=== PATIENT | male | born 1970 | race Native Hawaiian/Other Pacific Islander ===

== ENCOUNTER 2019-12-05 13:56 | Inpatient (IN) | payer MEDICAID, SELFPAY ==
[~2019-12-05] VITALS: Ht 172.7 cm; Wt 95.3 kg
[2019-12-05 14:00] VITALS: BP 124/70
--- NOTE | 2019-12-05 14:35 | NUR ---
C/O SOB/COUGH & FEVER X3 WEEKS. PT IS COVID +. O2 SAT RA 90%. LUNG SOUNDS DIMINISHED IN BILAT BASES. PT TACHYPNEIC AT 31 RESPIRATIONS PER MINUTE. BREATHING IS UNLABORED AND ACCESORY MUSCLE USE IS NOT NOTED. PT DENIES N/V/D. PT IS AFEBRILE AT THIS TIME. PT PLACED ON 2LMP NC. PT PLACED ON BEDSIDE GEMOLOGIST AT THIS TIME. BED IN LOW POSITION, SIDE RAIL UP X1.
--- NOTE | 2019-12-05 14:45 | NUR ---
Dr. Mcallister is evaluating the patient at bedside.
[2019-12-05 15:29] LABS: HEMATOCRIT 40.9 % (36-52); RED BLOOD CELL COUNT(AUTO) 4.46 MIL/uL (4.20-6.10); WHITE BLOOD COUNT (AUTO) 6.3 K/uL (4.8-10.8)
[2019-12-05 15:30] LABS: BASOPHILS % (AUTO) 0.3 % (0.0-2.0); EOSINOPHILS % (AUTO) 0.3 % (0.0-4.0); LYMPHOCYTES % (AUTO) 9.6 % (20.5-51.1); MEAN CORPUSCULAR HEMOGLOBIN 31 pg (27-31); MEAN CORPUSCULAR HGB CONC 34 g/dL (33-37); MEAN CORPUSCULAR VOLUME 91.6 fL (80-94); NEUTROPHILS % (AUTO) 82.8 % (42.2-75.2); PLATELET COUNT (AUTO) 172 K/uL (140-450); RED CELL DISTRIBUTION WIDTH 12.8 % (11.6-13.7)
[2019-12-05 15:31] LABS: LYMPHOCYTES # (AUTO) 0.6 K/uL (2.0-11.5); MONOCYTES # (AUTO) 0.4 K/uL (0.8-1.0); NEUTROPHILS # (AUTO) 5.2 K/uL (1.8-7.7)
--- NOTE | 2019-12-05 15:36 | NUR ---
PT UNABLE TO PROVIDE URINE AT THIS TIME
[2019-12-05 15:47] LABS: PROTHROMBIN TIME 10.1 secs (10.8-13.4)
[2019-12-05 15:57] LABS: ALBUMIN 3.1 g/dL (3.4-5.0); ANION GAP 15.7 (8-16); CARBON DIOXIDE 25.3 mmol/L (21-32); TOTAL BILIRUBIN 0.6 mg/dL (0.0-1.0)
--- NOTE | 2019-12-05 16:00 | NUR ---
PT PROVIDED URINE SAMPLE. WALKED TO LAB
[2019-12-05] MEDS ORDERED: AZITHROMYCIN 500 MG in DEXTROSE 5% 250 ML IV ONE (16:35)
[2019-12-05] MEDS ORDERED: AZITHROMYCIN 500 MG INJ VIAL IV ONE (16:41)
[2019-12-05 16:44] LABS: APPEARANCE,URINE CLEAR (CLEAR); BILIRUBIN,URINE NEGATIVE (NEGATIVE); BLOOD, URINE NEGATIVE (NEGATIVE); LEUKOCYTE ESTERASE ,URINE NEGATIVE (NEGATIVE); NITRITE, URINE NEGATIVE (NEGATIVE); UGLUCOSE NEGATIVE (NEGATIVE)
[2019-12-05] MEDS ORDERED: POTASSIUM CHLORIDE 10 MEQ TABER PO PRN (16:55)
[2019-12-05] MEDS ORDERED: HYDROcodone/APAP 7.5/325 MG 1 TAB PO PRN (16:55)
[2019-12-05] MEDS ORDERED: DOCUSATE SODIUM 100 MG GELCAP PO PRN (16:55)
[2019-12-05] MEDS ORDERED: ONDANSETRON 4 MG/2 ML VIAL IM/IVP PRN (16:55)
[2019-12-05] MEDS ORDERED: ACETAMINOPHEN 325 MG TAB PO PRN (16:55)
[2019-12-05 16:59] LABS: COLOR,URINE AMBER (YELLOW)
--- NOTE | 2019-12-05 17:03 | NUR ---
PT IS RESTING IN BED AT THIS TIME, DENIES ANY PAIN OR DISCOMFORT. VSS. BED IN LOWEST POSITION. ALL NEEDS MET AT THIS TIME
[2019-12-05] MEDS: NACL 0.9% 1,000 ML IV SCH (17:22)
[2019-12-05 17:46] LABS: CHOL/HDL RATIO 5.7 (1-4.5); FREE T4 (FREE THYROXINE) 1.1 ng/dL (0.76-1.46); PHOSPHORUS 3.4 mg/dL (2.5-4.9); THYROID STIMULATING HORMONE 1.95 uIU/mL (0.34-3.74)
[2019-12-05 18:26] LABS: BARBITURATE, URINE NEGATIVE ng/ml (NEG <=200); BENZODIAZEPINE, URINE NEGATIVE ng/mL (NEG <=200); CANNABINOID, URINE NEGATIVE ng/mL (NEG <=50); COCAINE, URINE NEGATIVE ng/mL (NEG <=300); OPIATE, URINE NEGATIVE ng/mL (NEG <=2000); PHENCYCLIDINE SCREEN,URINE NEGATIVE ng/mL (NEG <=25)
--- NOTE | 2019-12-05 19:27 | NUR ---
Report received from CELINE Vargas. Transfer of care at this time.
--- NOTE | 2019-12-05 19:27 | NUR ---
PT IS RESTING IN BED QUIETLY. NO DISTRESS NOTED AT THIS TIME. CURRENTLY O2: 96% 3LPM NC. BP: 124/72, P: 71. R/R EQUAL, AND UNLABORED. NO ACCESSORY MUSCLE USE NOTED. CURRENTLY CONNECTED TO DRUM TENDER. SIDE RAIL X2, BED IN LOW POSITION, WILL CONTINUE TO MONITOR.
[2019-12-05] MEDS ORDERED: ALBUTEROL HFA MDI 90 MCG/ACTUATION 8 GM INH PRN (21:25)
--- NOTE | 2019-12-05 21:30 | NUR ---
PT SITTING UP IN BED EATING SANDWHICH. VSS, R/R EQUAL, AND UNLABORED. SIDE RAIL X1, BED IN LOW POSITION, WILL CONTINUE TO MONITOR.
[2019-12-05] MEDS ORDERED: cefTRIAXone 1,000 MG VIAL ONE (22:05)
--- NOTE | 2019-12-05 22:23 | NUR ---
ROCEPHIN 1,000MG IN D5% 50ML RUNNING AT 100ML/HR
--- NOTE | 2019-12-05 23:04 | NUR ---
Sydnie bishop in [facility] - 12/06/19 at 0004 by [facility] PT'S DIAPER, AND LINEPj BUTCHER.
--- NOTE | 2019-12-05 23:05 | NUR ---
PT PLACED BACK ON NS @ 100ML/HR. PT RESTING QUIETLY IN BED, VSS, O2: 93%, R/R EQUAL, AND UNLABORED. SIDE RAIL X1, BED IN LOW POSITION, WILL CONTINUE TO MONITOR.
--- NOTE | 2019-12-06 00:13 | NUR ---
PT RESTING QUIETLY IN BED, VSS, O2: 92% R/R EQUAL, AND UNLABORED, SIDE RAIL X1, BED IN LOW POSITION WILL CONTINUE TO MONITOR.
--- NOTE | 2019-12-06 02:53 | NUR ---
O2% BEGAN TO DECLINE TO 81-83% WHILE ON NC @5L/MIN. PT WAS THEN PLACED ON NONREBREATHER MASK @10L/MIN AND O2 SAT INCREASED TO 88-89%. DR. AQUINO CALLED.
--- NOTE | 2019-12-06 03:12 | NUR ---
DR. AQUINO REQUESTED FOR RT TO COME AND MAINTAIN PT'S O2 SATURATION, AND IF THAT COULDNT BE ACHIEVED TO CALL BALLISTICS EXPERT. Addendum: 12/06/19 at 0315 by [employer] ORDER IS TO MAINTAIN O2 ABOVE 90%
--- NOTE | 2019-12-06 03:14 | NUR ---
RT AT BEDSIDE COMPLETING ABG.
--- NOTE | 2019-12-06 03:47 | NUR ---
PT APPEARS TO BE SLEEPING, R/R EQUAL, AND UNLABORED, VSS, O2SAT: 93%. SIDE RAIL X1, BED IN LOW POSITION, WILL CONTINUE TO MONITOR.
[2019-12-06] MEDS: NACL 0.9% 1,000 ML IV SCH ×3 (03:50→21:37)
--- NOTE | 2019-12-06 04:56 | NUR ---
PT APPEARS TO BE SLEEPING, R/R EQUAL, AND UNLABORED, VSS, O2SAT: 92%. SIDE RAIL X1, BED IN LOW POSITION, WILL CONTINUE TO MONITOR.
--- NOTE | 2019-12-06 06:13 | NUR ---
PT RESTING IN BED QUIETLY. R/R EQUAL, AND UNLABORED, VSS, O2SAT: 93%. SIDE RAIL X1, BED IN LOW POSITION, WILL CONTINUE TO MONITOR.
--- NOTE | 2019-12-06 07:23 | NUR ---
PT ADMITTED TO THE CARE OF . ADMITTED TO MED SURG ROOM 128. REPORT GIVEN TO RUPERT BERGER. VSS AT ADMISSION TO NEXT UNIT.
--- NOTE | 2019-12-06 07:26 | NUR ---
RECEIVED REPORT FROM ER NURSE JANETTE FOR CONTINUITY OF CARE. PT IS AAOX4, COOPERATIVE AND ABLE TO MAKE NEEDS KNOWN. PT IS ROMANIAN SPEAKING. PT ON 15L O2 VIA NON-REBREATHER. PT WAS HAVING TROUBLE BREATHING ON PREVIOUS O2 SETTINGS PER ER NURSE. PT STABLE AT THIS TIME WITH NO S/S OF RESP DISTRESS. PT SKIN INTACT. PT ABLE TO AMBULATE AND PERFORM ADL'S INDEPENDENTLY. DISCUSSED POC WITH PT NAD PT VERBALIZED UNDERSTANDING. ALL NEEDS CURRENTLY MET. BED IN LOW POSITION, CALL LIGHT WITHIN REACH. WILL ROUND FREQUENTLY ON PT THROUGHOUT THE SHIFT.
[2019-12-06 07:48] LABS: BASOPHILS % (AUTO) 0.5 % (0.0-2.0); EOSINOPHILS # (AUTO) 0.1 K/uL (0-0.4); EOSINOPHILS % (AUTO) 0.9 % (0.0-4.0); HEMATOCRIT 37.8 % (36-52); HEMOGLOBIN 12.9 g/dL (12.0-18.0); LYMPHOCYTES # (AUTO) 1.1 K/uL (2.0-11.5); LYMPHOCYTES % (AUTO) 18.5 % (20.5-51.1); MEAN CORPUSCULAR HEMOGLOBIN 31 pg (27-31); MEAN CORPUSCULAR HGB CONC 34 g/dL (33-37); MEAN CORPUSCULAR VOLUME 92.4 fL (80-94); MONOCYTES # (AUTO) 0.5 K/uL (0.8-1.0); MONOCYTES % (AUTO) 8.9 % (1.7-9.3); NEUTROPHILS # (AUTO) 4.2 K/uL (1.8-7.7); NEUTROPHILS % (AUTO) 71.2 % (42.2-75.2); PLATELET COUNT (AUTO) 173 K/uL (140-450); RED CELL DISTRIBUTION WIDTH 12.4 % (11.6-13.7); WHITE BLOOD COUNT (AUTO) 5.9 K/uL (4.8-10.8)
--- NOTE | 2019-12-06 08:38 | NUR ---
PATIENT HAS BEEN SCREENED AND CATEGORIZED MODERATE NUTRITION RISK. PATIENT WILL BE SEEN WITHIN 3-5 DAYS OF ADMISSION. 12/08/19 12/10/[address]
[2019-12-06 08:39] LABS: ANION GAP 15.1 (8-16); CARBON DIOXIDE 24.2 mmol/L (21-32); CREATININE 0.9 mg/dL (0.6-1.3); POTASSIUM 4.3 mmol/L (3.5-5.1)
--- NOTE | 2019-12-06 09:11 | NUR ---
ADMINISTERED MORNING MEDS TO PT. PT TOLERATED WELL. WILL CONTINUE TO ROUND FREQUENTLY ON PT.
[2019-12-06] MEDS: DEXAMETHASONE 4 MG TAB PO SCH (09:42)
[2019-12-06] MEDS: ASCORBIC ACID 500 MG TAB PO SCH (09:43)
[2019-12-06] MEDS: ZINC SULF 220 MG CAP PO SCH (09:43)
[2019-12-06] MEDS: AZITHROMYCIN 250 MG TAB PO SCH (09:43)
--- NOTE | 2019-12-06 10:03 | NUR ---
ROBOTICS TESTING TECHNICIAN NOTE: Patient's Orientation Unable To Assess Information Provided By BUCK RODRIGUEZ - Comments SW WAS UNABLE TO MEET PATIENT AT BEDSIDE DUE TO MEDICAL CONDITION. SW CONTACTED PATIENT'S BUCK RODRIGUEZ [phone] AND USED YARD ASSISTANT HÉCTOR [id number]. Anesthesiologist Physician, Realtionship and Phone Number BUCK VERA [phone] Healthcare Power of Forensic Investigator No Does Patient Have a POLST No Identifying Problems No Social Work Triggers Is A Social Work Consult Needed No Mandate Report Filed No Explanation Of Identifying Problems PATIENT IS A 49-YEAR-OLD MALE ADMITTED FOR PNEUMONIA AND COVID R/O. PATIENT HAS NO REPORTED PMHX. Admitted From Home Pre-Admission Level Of Functioning Status Independent/Ambulatory Prior Resources/Services Used In Last 12 Months No Prior Resources Used Prior DME No Prior DME Used Living Situation Apartment Lives With Family Patient Had Caregiver No Home Support No Caregiver Issues Financial Issues No Known Financial Issue Referral To The Financial Counselor Needed No Factors/Needs No D/C Needs Identified Pt/Rep Participated In Discharge Plan Yes Patient/Family Agress With Discharge Plan Yes Discharge Plan Comments TENTATIVE DISCHARGE PLAN IS FOR PATIENT TO RETURN HOME. DC Plan Status Initiated
--- NOTE | 2019-12-06 10:52 | NUR ---
PT WAS CHANGED FROM NRB AT 100% TO 9L OXYMIZER AND CELINE EMERY NOTIFIED OF CHANGE
--- NOTE | 2019-12-06 11:19 | NUR ---
PT RESTING IN BED. ALL NEEDS MET.
--- NOTE | 2019-12-06 13:22 | NUR ---
PT ASLEEP. ALL NEEDS MET.
--- NOTE | 2019-12-06 14:52 | NUR ---
MRSA NARES AND COVID SWABS TAKEN TO LAB.
--- NOTE | 2019-12-06 15:30 | NUR ---
DISCHARGE PLANNING: THIS IS A 49 Y/O MALE PATIENT FROM HOME, WHO CAME IN DUE TO SOB. NO PERTINENT PAST MEDICAL HISTORY. INITIAL DIAGNOSIS OF PNEUMONIA AND COVID 19. COVID TEST PENDING. CURRENT LABS INCLUDE WBC 5.9, H/H 12.9/37.8, NA/K 137/4.3, BUN/CREA 9/0.9. BLOOD CS SHOWED NO GROWTH AFTER 24 HOURS. ON AZITHROMYCIN, DECADRON AND ROCEPHIN. ON NON REBREATHER MASK AT 15 LPM, O2 SAT 96%. PULMO CONSULT IN PLACE. TENTATIVE DC PLAN BACK TO HOME ONCE STABLE. Addendum: 12/08/19 at 1345 by Diana Dillon CM FAXED PATIENTS CLINICALS TO [facility], SPOKE TO SHERYL FROM [facility] [phone]. THE HOME 02 WILL BE DISPATCHED TODAY. Addendum: 12/08/19 at 1536 by Diana Dillon CM FOLLOWED UP WITH [facility] ETA FOR OXYGEN WILL BE WITHIN TWO HOURS (5:30) Addendum: 12/09/19 at 1606 by Diana Dillon CELINE SORIANO CALLED ME REGARDING OXYGEN FOR PATIENT. IT WAS DELIVERED YESTERDAY BUT SHE STATED IT WAS EMPTY. I REACHED OUT TO SUMAYA AT [facility] HE IS SENDING A CLINICAL SPECIALIST OUT TO DISPATCH A NEW TANK. SPOKE TO CELINE SORIANO SHE WAS AWARE. ETA WILL BE WITHIN TWO HOURS FROM NOW
--- NOTE | 2019-12-06 15:49 | NUR ---
PT RESTING IN BED. ALL NEEDS MET. WILL CONTINUE TO ROUND FREQUENTLY ON PT.
[2019-12-06 16:00] VITALS: BP 110/76
--- NOTE | 2019-12-06 17:30 | NUR ---
PT RESTING IN BED. ALL NEEDS MET.
--- NOTE | 2019-12-06 18:53 | NUR ---
WILL ENDORSE PT TO MANUAL PLATE FILLER FOR CONTINUITY OF CARE. PT IN STABLE CONDITION AT THIS TIME.
--- NOTE | 2019-12-06 19:19 | NUR ---
RECEIVED BEDSIDE REPORT FROM DAY RN RUPERT, PT IS SITING AT EDGE OF BED EATING DINNER. NO S/S OF DISTRESS. PT OFF OXIMIZER SAT LOW IN LOW 80S ON ROOM AIR. EDUCATED PT TO PUT OXIMIZER ON. ON OXIMZER 9L SAT WELL 97%. PT IS AAOX4. NO S/S OF DISTRESS. IV ON RAC 28G NS INFUSING AT 100ML/H. SKIN IS INTACT. PT R/O COVID. DROPLET ISOLATION PER PROTOCOL SIGN AT DOOR. PT IS AMBULATORY AND ABLE TO MAKE NEEDS KNOWN. POC DISCUSSED WITH PT. CALL LIGHT IS WITHIN REACH. WILL CONTINUE TO MONITOR.
[2019-12-06 20:00] VITALS: BP 111/71
--- NOTE | 2019-12-06 21:15 | NUR ---
VSS. GERDA MEDICATION GIVEN PER ORDERS. MED EDUCATION GIVEN. PT VERBALIZED UNDERSTANDING. ALL QUESTIONS AND CONCERNS ADDRESSED. PT VERBALIZED HE PLANS TO DONATE PLASMA WHEN HE RECOVERS. PT VERBALIZED POC. ALL NEEDS MET. CALL LIGHT IS WITHIN REACH.
--- NOTE | 2019-12-06 22:08 | NUR ---
PT IS RESTING COMFORTABLY IN BED WATCHING TV. ALL NEEDS MET. CALL LIGHT IS WITHIN REACH. WILL CONTINUE TO MONITOR.
[2019-12-07] VITALS: BP 117/64
--- NOTE | 2019-12-07 | NUR ---
VITAL SIGNS ARE WITHIN NORMAL LIMITS. ALL SAFETY MEASURES ARE IN PLACE. CALL LIGHT IS WITHIN REACH.
--- NOTE | 2019-12-07 01:51 | NUR ---
PT IS SLEEPING COMFORTABLY IN BED WITH EYES CLOSED. CHEST RISE AND FALL NOTED. CALL LIGHT IS WITHIN REACH. WILL CONTINUE TO MONITOR.
--- NOTE | 2019-12-07 04:00 | NUR ---
MADE ROUNDS. PT IS SLEEPING COMFORTABLY IN BED. NO S/S OF DISTRESS. CALL LIGHT IS WITHIN REACH.
--- NOTE | 2019-12-07 05:59 | NUR ---
MADE ROUNDS. PT IS SLEEPING COMFORTABLY IN BED. CALL LIGHT IS WITHIN REACH.
[2019-12-07 06:18] LABS: BASOPHILS % (AUTO) 0.4 % (0.0-2.0); HEMATOCRIT 37.2 % (36-52); HEMOGLOBIN 12.3 g/dL (12.0-18.0); LYMPHOCYTES # (AUTO) 0.7 K/uL (2.0-11.5); LYMPHOCYTES % (AUTO) 15.5 % (20.5-51.1); MEAN CORPUSCULAR HEMOGLOBIN 31 pg (27-31); MEAN CORPUSCULAR HGB CONC 33 g/dL (33-37); MEAN CORPUSCULAR VOLUME 92.8 fL (80-94); MONOCYTES # (AUTO) 0.4 K/uL (0.8-1.0); NEUTROPHILS # (AUTO) 3.2 K/uL (1.8-7.7); NEUTROPHILS % (AUTO) 74.1 % (42.2-75.2); RED BLOOD CELL COUNT(AUTO) 4.01 MIL/uL (4.20-6.10); RED CELL DISTRIBUTION WIDTH 12.5 % (11.6-13.7); WHITE BLOOD COUNT (AUTO) 4.3 K/uL (4.8-10.8)
[2019-12-07 06:23] LABS: PLATELET COUNT (AUTO) 207 K/uL (140-450)
[2019-12-07 06:46] LABS: ANION GAP 14.1 (8-16); CARBON DIOXIDE 25.2 mmol/L (21-32); CREATININE 0.8 mg/dL (0.6-1.3); POTASSIUM 4.3 mmol/L (3.5-5.1)
--- NOTE | 2019-12-07 07:19 | NUR ---
GAVE BEDSIDE REPORT TO DAY RN. PT ENDORSED IN STABLE CONDITION.
--- NOTE | 2019-12-07 07:26 | NUR ---
RECEIVED REPORT FROM NIGHTSHIFT NURSE. PT RESTING IN BED. ABLE TO MAKE NEEDS KNOWN. RESPIRATIONS EVEN AND UNLABORED WITH NO SOB OR RESPIRATORY DISTRESS. SKIN WARM AND DRY TO TOUCH. IV SITE IN RAC 18G IS CLEAN, DRY, AND INTACT. SAFETY MEASURES IN PLACE. WILL CONTINUE TO MONITOR
[2019-12-07 08:00] VITALS: BP 132/86
--- NOTE | 2019-12-07 09:30 | NUR ---
ADMINISTERED SCHED MED PRESCRIBED PER MD ORDER. PT TOLERATED WELL. SAFETY MEASURES IN PLACE. WILL CONTINUE TO MONITOR
[2019-12-07] MEDS: NACL 0.9% 1,000 ML IV SCH ×2 (09:32→18:30)
[2019-12-07] MEDS: ZINC SULF 220 MG CAP PO SCH (09:35)
[2019-12-07] MEDS: AZITHROMYCIN 250 MG TAB PO SCH (09:35)
[2019-12-07] MEDS: DEXAMETHASONE 4 MG TAB PO SCH (09:35)
[2019-12-07] MEDS: ASCORBIC ACID 500 MG TAB PO SCH (09:35)
--- NOTE | 2019-12-07 11:25 | NUR ---
HOURLY ROUNDING. PT RESTING IN BED WATCHING TV. ABLE TO MAKE NEEDS KNOWN. RESPIRATIONS EVEN AND UNLABORED WITH NO SOB OR RESPIRATORY DISTRESS. SKIN WARM AND DRY TO TOUCH. SAFETY MEASURES IN PLACE. WILL CONTINUE TO MONITOR
[2019-12-07 12:17] LABS: T4 (THYROXINE) 6.6 ug/dL (4.5-12.0)
--- NOTE | 2019-12-07 13:04 | NUR ---
PT WALKING AROUND ROOM. ABLE TO MAKE NEEDS KNOWN. RESPIRATIONS EVEN AND UNLABORED WITH NO SOB OR RESPIRATORY DISTRESS. SKIN WARM AND DRY TO TOUCH. SAFETY MEASURES IN PLACE. WILL CONTINUE TO MONITOR
[2019-12-07 16:00] VITALS: BP 111/76
--- NOTE | 2019-12-07 16:15 | NUR ---
HOURLY ROUNDING. PT RESTING IN BED. ABLE TO MAKE NEEDS KNOWN. RESPIRATIONS EVEN AND UNLABORED WITH NO SOB OR RESPIRATORY DISTRESS. SKIN WARM AND DRY TO TOUCH. SAFETY MEASURES IN PLACE. WILL CONTINUE TO MONITOR
--- NOTE | 2019-12-07 18:38 | NUR ---
ADMINISTERED SCHED IVF PRESCRIBED PER MD ORDER. PT TOLERATED WELL. SAFETY MEASURES IN PLACE. WILL CONTINUE TO MONITOR
--- NOTE | 2019-12-07 19:09 | NUR ---
ENDORSED AT BEDSIDE TO NIGHTSHIFT NURSE FOR CONTINUITY OF CARE. PATIENT IS STABLE
--- NOTE | 2019-12-07 19:20 | NUR ---
RECEIVED REPORT FROM MORNING SHIFT NURSE. PT IS CURRENTLY IN THE RESTROOM IN NO DISTRESS. SAFETY MEASURES IN PLACE. WILL CONTINUE TO MONITOR WILL CONTINUE WITH POC
--- NOTE | 2019-12-07 21:09 | NUR ---
RECEIVED REPORT FROM AM SHIFT. PT SEEN AND ASSESSED. FOUND PT ON 9L OXYMIZER. PT REQUESTED FOR A CHANGE IN MODALITY. PLACE PT ON 6L NC WITH SPO2 OF 95%. CLEAR/DIMINISHED BREATH SOUNDS ON AUSCULTATION. PT IN NO APPARENT RESPIRATORY DISTRESS AT THIS TIME. PRN TX NOT INDICATED AT THIS MOMENT. INFORMED PT TO CALL FOR PRN TX IF EXPERIENCING SOB. WILL CONTINUE TO MONITOR PT.
--- NOTE | 2019-12-07 23:00 | NUR ---
PT RESTING IN BED IN NO DISTRESS, CALL LIGHT WITHIN REACH SAFETY MEASURES IN PLACE.
[2019-12-08] VITALS: BP 112/58
--- NOTE | 2019-12-08 00:15 | NUR ---
PT RESTING IN BED DENIES ANY PAIN OR DISCOMFORT IN NO RESPIRATORY DISTRESS. V/S: 97.3, 66, 19, 112/58, 93 % 6L NC. WILL CONTINUE TO MONITOR. CALL LIGHT WITHIN REACH ALL NEEDS ARE MET AT THIS TIME.
--- NOTE | 2019-12-08 02:05 | NUR ---
IN BED WITH EYES CLOSED IN NO DISTRESS. SAFETY MEASURES IN PLACE
--- NOTE | 2019-12-08 04:00 | NUR ---
PT ASLEEP LAYING SUPINE IN NO RESPIRATORY DISTRESS. SPO2 OF 96% ON 6 L NC. REMAINS ON IVF NS AT 100ML TO R AC. IV SITE INTACT AND PATENT. DENIES ANY PAIN OR DISCOMFORT AT THIS TIME. WILL CONTINUE TO MONITOR.
[2019-12-08] MEDS: NACL 0.9% 1,000 ML IV SCH ×2 (05:20→15:38)
--- NOTE | 2019-12-08 06:02 | NUR ---
DURING ROUNDS PT OBSERVED TO BE RESTING WITH EYES CLOSED. RESPIRATION EVEN AND UNLABORED. IN NO DISTRESS. WILL CONTINUE TO MONITOR
[2019-12-08 06:19] LABS: BASOPHILS % (AUTO) 0.4 % (0.0-2.0); HEMATOCRIT 35.8 % (36-52); HEMOGLOBIN 12.2 g/dL (12.0-18.0); LYMPHOCYTES # (AUTO) 0.9 K/uL (2.0-11.5); LYMPHOCYTES % (AUTO) 12.2 % (20.5-51.1); MEAN CORPUSCULAR HEMOGLOBIN 31 pg (27-31); MEAN CORPUSCULAR HGB CONC 34 g/dL (33-37); MEAN CORPUSCULAR VOLUME 91.8 fL (80-94); MONOCYTES # (AUTO) 0.8 K/uL (0.8-1.0); MONOCYTES % (AUTO) 11.5 % (1.7-9.3); NEUTROPHILS # (AUTO) 5.5 K/uL (1.8-7.7); NEUTROPHILS % (AUTO) 75.9 % (42.2-75.2); PLATELET COUNT (AUTO) 251 K/uL (140-450); RED CELL DISTRIBUTION WIDTH 12.6 % (11.6-13.7); WHITE BLOOD COUNT (AUTO) 7.3 K/uL (4.8-10.8)
[2019-12-08 06:54] LABS: ANION GAP 16.4 (8-16); CARBON DIOXIDE 24.8 mmol/L (21-32); CREATININE 0.9 mg/dL (0.6-1.3); POTASSIUM 4.2 mmol/L (3.5-5.1)
--- NOTE | 2019-12-08 07:00 | NUR ---
RECEIVED REPORT FROM COSMETIC CHEMIST NURSE FOR CONTINUITY OF CARE. PATIENT ASLEEP AND RESTING IN BED. ABLE TO MAKE NEEDS KNOWN. RESPIRATIONS EVEN AND UNLABORED WITH NO SOB OR RESPIRATORY DISTRESS ON 6L NC WITH SAO2 AT 96%. SKIN WARM AND DRY TO TOUCH. IV SITE IN RAC 18G IS CLEAN, DRY, AND INTACT WITH IVF RUNNING PER ORDERS. DROPLET ISOLATION OBSERVED BY ALL STAFF. POC DISCUSSED. SAFETY MEASURES IN PLACE. CALL LIGHT WITHIN REACH. WILL CONTINUE TO MONITOR
--- NOTE | 2019-12-08 07:15 | NUR ---
BEDSIDE REPORT GIVEN TO AM RN FOR CONTINUITY OF CARE. PT IS STABLE
[2019-12-08 08:00] VITALS: BP 133/84
[2019-12-08] MEDS: ASCORBIC ACID 500 MG TAB PO SCH (10:04)
[2019-12-08] MEDS: AZITHROMYCIN 250 MG TAB PO SCH (10:04)
[2019-12-08] MEDS: ZINC SULF 220 MG CAP PO SCH (10:04)
--- NOTE | 2019-12-08 10:04 | NUR ---
MORNING MEDICATIONS GIVEN. NO SIGNS OF DISTRESS NOTED. PATIENT STATES BEING IN A MUCH BETTER CONDITION AND QUESTIONS ON HIS DISCHARGE. WILL FOLLOW UP WITH DR. AQUINO. WILL CONTINUE TO MONITOR.
[2019-12-08] MEDS ORDERED: DEC4 PO (10:54)
[2019-12-08] MEDS ORDERED: AZIT250T3 PO (10:54)
[2019-12-08] MEDS ORDERED: APIX2.5 PO (10:54)
--- NOTE | 2019-12-08 11:38 | NUR ---
pt on room air went to restroom spo2 decreased to low 80"s placed on 3lpm nc 86 t0 87 % spo2 placed on 4lpm nc 92%spo2 left on 4lpm nc
--- NOTE | 2019-12-08 11:50 | NUR ---
ATTEMPTED TO WEAN PATIENT OFF O2 TO 2LPM NC, SAO2 IS AT 92%. RT IS AWARE AND WILL MAINTAIN ON 2LPM O2 NC. WILL CONTINUE TO MONITOR.
--- NOTE | 2019-12-08 12:00 | NUR ---
V/S TAKEN AND IS WNL. NO SIGNS OF DISTRESS NOTED. WILL CONTINUE TO MONITOR.
--- NOTE | 2019-12-08 12:30 | NUR ---
pt fio2 down to 3lpm rn aware pt gary well
--- NOTE | 2019-12-08 15:30 | NUR ---
PATIENT ASLEEP AND IN BED. NO SIGNS OF DISTRESS NOTED. WILL CONTINUE TO MONITOR.
[2019-12-08 16:00] VITALS: BP 124/73
--- NOTE | 2019-12-08 17:39 | NUR ---
COVID-19 RESULT POSITIVE, COPY OF RESULTS WILL BE GIVEN TO CARMEN AT INFECTION CONTROL
--- NOTE | 2019-12-08 18:10 | NUR ---
RECEIVED OXYGEN TANK AND OXIMIZER FROM [facility], PLACED ITEMS IN PATIENT'S ROOM. WILL ENDORSED TO ORE PUNCHER NURSE. WILL CONTINUE TO MONITOR.
--- NOTE | 2019-12-08 19:00 | NUR ---
RECEIVED BEDSIDE ENDORSEMENT FROM CELINE SORIANO. PATIENT IS SITTING. AAOX4. NO SOB. ON 3L NASAL CANNULA. O2 SAT WNL. PLAN OF CARE DISCUSSED. DROPLET PRECAUTION OBSERVED. CALL LIGHT WITHIN REACH.
--- NOTE | 2019-12-08 19:00 | NUR ---
ENDORSED TO IRRIGATOR GRAVITY FLOW NURSE FOR CONTINUITY OF CARE.
--- NOTE | 2019-12-08 21:07 | NUR ---
DUE MEDS GIVEN ORDERED. TOLERATED WELL, NO A/R NOTED.
[2019-12-09] VITALS: BP 133/82
--- NOTE | 2019-12-09 | NUR ---
V/S TAKEN AND WNL. NO SOB.
[2019-12-09] MEDS: NACL 0.9% 1,000 ML IV SCH ×2 (00:25→04:52)
--- NOTE | 2019-12-09 02:00 | NUR ---
PATIENT SLEEPING, RESPIRATION EVEN AND UNLABORED. NO SOB.
--- NOTE | 2019-12-09 04:15 | NUR ---
CHECKED PATIENT, V/S TAKEN.
--- NOTE | 2019-12-09 04:52 | NUR ---
IVF DONE, CHANGED IT TO A NEW BAG OF NS 1L AT 100 CC/HR. INFUSING WELL.
--- NOTE | 2019-12-09 07:00 | NUR ---
RECEIVED REPORT FROM PROFESSIONAL ARCHITECT NURSE FOR CONTINUITY OF CARE. PATIENT ASLEEP AND RESTING IN BED. ABLE TO MAKE NEEDS KNOWN. RESPIRATIONS EVEN AND UNLABORED WITH NO SOB OR RESPIRATORY DISTRESS ON 3L NC WITH SAO2 AT 96%. SKIN WARM AND DRY TO TOUCH. IV SITE IN RAC 18G IS CLEAN, DRY, AND INTACT WITH IVF RUNNING PER ORDERS. DROPLET ISOLATION OBSERVED BY ALL STAFF. POC DISCUSSED. SAFETY MEASURES IN PLACE. CALL LIGHT WITHIN REACH. WILL CONTINUE TO MONITOR
--- NOTE | 2019-12-09 07:02 | NUR ---
PATIENT IS IN STABLE CONDITION. NO SOB. ENDORSE TO CELINE SORIANO FOR CONTINUITY OF CARE.
[2019-12-09 08:00] VITALS: BP 122/82
[2019-12-09] MEDS: AZITHROMYCIN 250 MG TAB PO SCH (09:43)
[2019-12-09] MEDS: ASCORBIC ACID 500 MG TAB PO SCH (09:43)
[2019-12-09] MEDS: ZINC SULF 220 MG CAP PO SCH (09:43)
--- NOTE | 2019-12-09 09:50 | NUR ---
MORNING MEDICATIONS GIVEN. NO SIGNS OF DISTRESS NOTED. WILL CONTINUE TO MONITOR.
--- NOTE | 2019-12-09 10:02 | NUR ---
12/09/19 RD INITIAL ASSESSMENT COMPLETED PLEASE REFER TO NUTRITION ASSESSMENT UNDER CARE ACTIVITY FOR ESTIMATED NUTRITIONAL NEEDS. 1. CONTINUE REGULAR DIET TOLERATED 2. CONTINUE ENSURE BID 3. RD PROVIDED NUTRITION EDUCATION FOR COVID-[address] TO FOLLOW-UP 5-7 DAYS, LOW RISK JESUS MEDNEZ, RD
[2019-12-09 12:43] VITALS: BP 122/82
--- NOTE | 2019-12-09 12:50 | NUR ---
ATTEMPTED TO TEACH HOME OXYGEN AND OXIMIZER. OXYGEN TANK FROM [facility] IS EMPTY AND OPEN. REPORTED TO CASE MANAGEMENT, [employer]KER. WILL CONTINUE TO MONITOR.
--- NOTE | 2019-12-09 15:30 | NUR ---
FOLLOWED UP WITH CASE MANAGEMENT, [employer], ON PORTABLE OXYGEN FOR PATIENT TO BE DISCHARGED. COMPANY HAS NOT REPLIED TO CASE MANAGEMENT, WILL FOLLOW UP AGAIN. WILL CONTINUE TO MONITOR.
[2019-12-09 16:00] VITALS: BP 129/82
--- NOTE | 2019-12-09 18:16 | NUR ---
RECEIVED NEW OXYGEN TANK FROM [facility]. DISCHARGE INSTRUCTIONS AND EDUCATED PATIENT ON USE OF OXYGEN AT HOME. PATIENT VERBALIZES UNDERSTANDING. COVID-19 HANDOUT (HOME ISOLATION, NUTRITION AND 10 WAYS TO MANAGE SYMPTOMS) GIVEN. PATIENT VERBALIZES UNDERSTANDING. IV SITE AND ARMBANDS REMOVED. WILL CONTINUE TO MONITOR.
--- NOTE | 2019-12-09 18:45 | NUR ---
PATIENT DISCHARGED TO HOME WITH SPOUSE. NO SIGNS OF DISTRESS NOTED. DISCHARGE PAPERWORKS AND EDUCATION GIVEN. IV SITE AND ARMBANDS REMOVED. PATIENT ABLE TO AMBULATE TOWARDS [facility].
--- NOTE | 2019-12-09 19:22 | NUR ---
ENDORSED TO LAND COMMISSIONER NURSE FOR CONTINUITY OF CARE.
== END 2019-12-09 18:45 | disposition home or self-care (01) | DRG 137 ==
LOC: MED 13:56 → EEVIPCON 13:56 → MTU 16:51 → MMU 12-06 05:49
PROVIDERS: ADMIT Family Medicine; ATTEND Family Medicine
DX: U07.1 COVID-19 (principal); J96.01 Acute respiratory failure with hypoxia; E87.1 Hypo-osmolality and hyponatremia; E44.1 Mild protein-calorie malnutrition; J12.89 Other viral pneumonia; E78.5 Hyperlipidemia, unspecified; R79.82 Elevated C-reactive protein (CRP); Z68.31 Body mass index [BMI] 31.0-31.9, adult
CPT/HCPCS: 36415; 36600; 71045; 80048; 80053; 80305; 81003; 82150; 82803; 83036; 83605; 83615; 83690; 83735; 83880; 84100; 84436; 84439; 84443; 84479; 84484; 85025; 85379; 85610; 85651; 85730; 86140; 87040; 87081; 93005; 96365; 96367; 96376; 99291; J0456; J0696; J1644; J7030; J7060; Q0092; U0003-CS